=== PATIENT | female | born 1990 | race American Indian/Alaskan Native ===

== ENCOUNTER 2021-07-16 16:25 | Emergency (ER) | payer SELFPAY ==
[2021-07-16 18:00] VITALS: BP 121/81
== END 2021-07-16 19:05 | disposition left against medical advice (07) ==
LOC: ED 16:25
DX: N76.89 Other specified inflammation of vagina and vulva (principal); Z53.21 Procedure and treatment not carried out due to patient leaving prior to being seen by health care provider

== ENCOUNTER 2021-11-30 18:29 | Emergency (ER) | payer SELFPAY | END 2021-11-30 19:30 | disposition left against medical advice (07) | LOC: ED 18:29 | DX: F41.9 Anxiety disorder, unspecified (principal); Z53.21 Procedure and treatment not carried out due to patient leaving prior to being seen by health care provider ==